=== PATIENT | female | born 1995 | race Caucasian/White ===

== ENCOUNTER 2020-09-19 03:39 | Emergency (ER) | payer OTHER ==
[2020-09-19] MEDS ORDERED: OXYMETAZOLINE HCL 100 SPRAYS BOTTLE NAS STA (04:12)
--- NOTE | 2020-09-19 04:16 | ED Physician Documentation ---
PD HPI DYSPNEA - Stated complaint Stated Complaint: SOA - Chief complaint Chief Complaint: Resp - History obtained from History obtained from: Patient - Additional information Additional information: 25-year-old woman with history of asthma and sleep apnea presents with shortness of breath acute in onset waking her from sleep prior to arrival. Patient awoke feeling short of air and then had a coughing fit causing her to follow-up. She used her advair inhaler 6 times prior to arrival with some relief. still feels like "my lungs are inflamed". denies fevers, cp, nausea, sore throat, ear pain. does have nasal congestion, rhinorrhea, and ear fullness. denies sick contacts. unvaccinated against covid-19. Review of Systems Constitutional: denies: Fever Cardiac: denies: Chest pain / pressure Respiratory: reports: Dyspnea, Cough GI: reports: Vomiting (posttussive emesis). denies: Nausea PD PAST MEDICAL HISTORY - Past Medical History Past Medical History: Yes Cardiovascular: None Respiratory: Asthma, Pneumonia, Shortness of breath, Sleep apnea Neuro: None Endocrine/Autoimmune: None GI: None [facility]: Ovarian cysts : None HEENT: None Psych: Depression, Anxiety, Panic attacks, Eating disorder Musculoskeletal: None Derm: None Other Past Medical History: PCOS - Past Surgical History Past Surgical History: Yes - Present Medications Home Medications: Ambulatory Orders Medication Instructions Recorded Confirmed FLUoxetine [PROzac] 10 mg PO DAILY 09/19/20 09/19/20 Fexofenadine/Pseudoephedrine 1 tab PO DAILY 09/19/20 09/19/20 [Franchesca-D 12 Hour Tablet] Fluticasone/Salmeterol [Advair 1 inhaler INH DAILY 09/19/20 09/19/20 100-50 Diskus] Loratadine [Claritin] 10 mg PO DAILY 09/19/20 09/19/20 Pnv No.95/Ferrous Fum/Folic AC 1 tab PO DAILY 09/19/20 09/19/20 [ Caplet] Spironolactone [Aldactone] 25 mg PO DAILY 09/19/20 09/19/20 metFORMIN [Glucophage] 500 mg PO DAILY 09/19/20 09/19/20 - Allergies Allergies/Adverse Reactions: Allergies Allergy/AdvReac Type Severity Reaction Status Date / Time No Known Drug Allergies Allergy Verified 09/19/20 03:51 - Social History Does the pt smoke?: No Smoking Status: Never smoker Does the pt drink ETOH?: Yes Does the pt have substance abuse?: No - Immunizations Immunizations are current?: Yes - POLST Patient has POLST: No PD ED PE NORMAL - Vitals Vital signs reviewed: Yes - General General: Alert and oriented X 3, No acute distress, Well developed/nourished - HEENT HEENT: Atraumatic, PERRL, EOMI, Moist mucous membranes, Pharynx benign, Other (BL nares with clear discharge and congestion) - Neck Neck: Supple, no meningeal sign - Cardiac Cardiac: RRR - Respiratory Respiratory: No respiratory distress, Clear bilaterally - Derm Derm: Normal color - Extremities Extremities: No deformity, No edema - Neuro Neuro: Alert and oriented X 3 - Psych Psych: Normal mood, Normal affect Results - Vitals Vitals: Vital Signs - 24 hr 09/19/20 09/19/20 09/19/20 03:47 04:11 04:43 Temperature 36.0 C L Heart Rate 97 73 74 Respiratory 20 20 20 Rate Blood Pressure 96/66 101/67 O2 Saturation 97 98 Oxygen O2 Source Room air PD MEDICAL DECISION MAKING - ED course ED course: 25-year-old man presents with acute coughing attack late this evening. Her lungs are completely clear on examination, she is well-appearing with normal vital signs. We discussed that she should get her COVID-19 vaccine as soon as possible and she says she is going to get Pfizer. Chest xray and albuterol ordered for comfort per patient request. Patient feeling better after albuterol. We will call if her covid swab is positive. return precautions given. f/u pmd. Departure - Departure Disposition: 01 Home, Self Care Clinical Impression: Shortness of breath Condition: Good Instructions: ED Dyspnea Shortness of Breath Comments: You were seen in the ED for shortness of breath. Please get your covid-19 vaccine as soon as your symptoms resolve. We will call you if your covid test is positive. please return to the ED if you have any new or worsening symptoms or other concerns. Follow up with your primary doctor. Forms: Activity restrictions
[2020-09-19] MEDS ORDERED: ALBUTEROL NEB 2.5 MG/3 ML INH STA (04:27)
[2020-09-19 05:26] LABS: B. PARAPERTUSSIS- RESP PCR PAN NOT DETECTED; B. PERTUSSIS- RESP PCR PANEL NOT DETECTED; C. PNEUMONIAE- RESP PCR PANEL NOT DETECTED; CORONAVIRUS 229E-RESP PCR NOT DETECTED; CORONAVIRUS HKU1-RESP PCR NOT DETECTED; CORONAVIRUS NL63-RESP PCR NOT DETECTED; CORONAVIRUS OC43-RESP PCR NOT DETECTED; HUMAN METAPNEUMOVIRUS NOT DETECTED; INFLUENZA A- RESP PCR PANEL NOT DETECTED; INFLUENZA B - RESP PCR PANEL NOT DETECTED; M. PNEUMONIAE- RESP PCR PANEL NOT DETECTED; PARAINFLUENZA VIRUS 1 NOT DETECTED; PARAINFLUENZA VIRUS 2 NOT DETECTED; PARAINFLUENZA VIRUS 3 NOT DETECTED; PARAINFLUENZA VIRUS 4 NOT DETECTED; RHINOVIRUS/ENTEROVIRUS NOT DETECTED; RSV- RESP PCR PANEL NOT DETECTED; SARS-CoV-2 -RESP PCR PANEL NOT DETECTED
[2020-09-19 05:28] VITALS: BP 110/66
--- NOTE | 2020-09-19 09:23 | XRAY Report ---
PROCEDURE: Chest 2 View X-Ray INDICATIONS: SOA, cough TECHNIQUE: 2 view(s) of the chest. COMPARISON: None. FINDINGS: Surgical changes and devices: None. Lungs and pleura: No pleural effusions or pneumothorax. Lungs are clear. Mediastinum: Mediastinal contours are normal. Heart size is normal. Bones and chest wall: No suspicious bony abnormalities. Soft tissues appear unremarkable. IMPRESSION: 1. No acute cardiopulmonary disease. 2. Concordant with preliminary report. Reviewed by: Cici Brown MD on 09/19/2020 9:21 AM PDT Approved by: Cici Brown MD on 09/19/2020 9:21 AM PDT Station ID: [id number]
== END 2020-09-19 05:26 | disposition home or self-care (01) ==
LOC: ED 03:39
DX: R06.02 Shortness of breath (principal); R05 Cough; Z20.822 Contact with and (suspected) exposure to COVID-19
CPT/HCPCS: 0202U; 71046; 94640; 99283; A9270